=== PATIENT | female | born 1965 | race Caucasian/White ===

== ENCOUNTER 2018-03-09 18:46 | Emergency (ER) | payer OTHER ==
[2018-03-09 19:00] VITALS: Ht 160 cm
[2018-03-09 20:03] VITALS: BP 148/90
== END 2018-03-09 20:03 | disposition home or self-care (01) ==
LOC: ED 18:46
DX: E34.51 Complete androgen insensitivity syndrome (principal); E11.9 Type 2 diabetes mellitus without complications; M06.9 Rheumatoid arthritis, unspecified; M79.7 Fibromyalgia; Z79.84 Long term (current) use of oral hypoglycemic drugs; Z98.890 Other specified postprocedural states

== ENCOUNTER 2019-12-05 11:17 | Emergency (ER) | payer OTHER, SELFPAY ==
[~2019-12-05] VITALS: Ht 160 cm; Wt 83.0 kg
[2019-12-05 11:52] VITALS: BP 133/69; Ht 160 cm; Wt 83.0 kg
== END 2019-12-05 13:03 | disposition home or self-care (01) ==
LOC: ED 11:17
DX: U07.1 COVID-19 (principal)
CPT/HCPCS: U0003-CS